=== PATIENT | male | born 1965 | race Caucasian/White ===

== ENCOUNTER 2025-08-06 18:38 | Emergency (ER) | payer OTHER, SELFPAY ==
[2025-08-06 18:41] VITALS: BP 155/90
[2025-08-06 19:02] LABS: Hematocrit 47.7 % (39.0-52.0); Hemoglobin 16.1 g/dL (13.0-18.0); Mean Corp Hgb Conc. 33.8 g/dL (33.0-37.0); Mean Corpuscular Volume 86.3 fL (80.0-94.0); Nucleated Red Blood Cells % 0 % (-); Platelet Count 268 10^3/uL (130-400); Red Cell Dist. Width 12.5 % (11.5-14.5)
[2025-08-06 19:19] LABS: ALT (SGPT) 51 U/L (0-50); AST (SGOT) 33 U/L (17-59); Albumin 4.8 g/dl (3.5-5.0); Alkaline Phosphatase 71 U/L (38-126); Blood Urea Nitrogen 19 mg/dl (9-20); Calcium 9.9 mg/dl (8.4-10.2); Carbon Dioxide 26 mmol/L (22-30); Chloride 103 mmol/L (98-107); Glucose 105 mg/dl (70-99); Potassium 4.4 mmol/L (3.5-5.1); Sodium 137 mmol/L (135-145); Total Protein 7.6 g/dl (6.3-8.2); eGFR > 60.00
[2025-08-06 19:27] LABS: Troponin I < 0.012 ng/ml
[2025-08-06 22:02] VITALS: BP 142/95
[2025-08-06 22:47] VITALS: BMI 30.9
[2025-08-06 22:50] VITALS: BP 129/93
[2025-08-06 23:00] VITALS: BP 122/86
--- NOTE | 2025-08-06 23:42 | ED.GENMED ---
History of Present Illness
General
Chief Complaint: Headache
Source: patient
Exam Limitations: none
Time Seen by Provider: 08/06/25 22:46
Nursing documentation reviewed up to this point in time: agreed with
History of Present Illness
History of Present Illness:
Patient is a 51-year-old male with history of hypertension presents to the ER for evaluation of head pressure. He reports he is at high pressure for the past 1-1/2 to 2 weeks. He reports it was off-and-on however for the past several days it has
been constant associate with nausea. He denies any visual disturbance chest pain or shortness of breath. He had varicose vein surgery July 14 at [facility]. He takes daily blood pressure medication(Olmesartan/HCTZ)/. He denies any trauma. He is
not on blood thinners. He had some neck pain but that is not new that has been for the past 2 months. He denies any visual disturbance. He had this evaluated and was diagnosed with arthritis by his family doctor.
Phy Exam
General Physical Exam
General Presentation: no apparent distress
General age: appears stated age
General Skin: warm and dry
General Habitus: normal
General Mental: alert
General Hydration: appears well hydrated
Cardiovascular Exam
Cardiovascular Exam: regular rate/rhythm, no murmur and normal peripheral pulses
Pulmonary Exam
Pulmonary Exam: lungs clear and no respiratory distress
Neurological Exam
Neurological Exam: alert, oriented x3, no motor deficits and no sensory deficits
Musculoskeletal Exam
Musculoskeletal Exam: full ROM
Skin Exam
Skin Exam: normal color and warm/dry
Psychiatric Exam
Psychiatric Exam: normal mood/affect
Course
Orders/Labs/Results
Orders:
Orders
08/06/25 18:47
Electrocardiogram (*1) Urgent
Reason for Study: Chest Pain
Cardiac Monitoring- Treatment ONCE
EKG- Treatment ONCE
IV Insert/Care/Rem.- Treatment PRN
O2 Therapy [RESP] Urgent
Titrate/Wean O2 to maintain O2 sat greater than (%): 90
Special Instructions: Maintain sats >/=90%
Pulse Ox/spot Check [RESP] Urgent
Quantity: 1
Special Instructions: ON ROOM AIR
08/06/25 18:55
Complete Blood Count/With Diff Urgent
Comprehensive Metabolic Panel Urgent
Troponin I Urgent
08/07/25 00:06
CT Head W/o Iv Contrast Urgent
Reason For Exam: headache
Abnormal Lab Results
08/06/25
18:55
Absolute Monos (auto) 0.7 H 10^3/uL
(0.1-0.6)
Monocytes % 10.5 H %
(1.7-9.3)
Glucose 105 H mg/dl
(70-99)
ALT 51 H U/L
(0-50)
08/06/25 18:55
08/06/25 18:55
Vital Signs
Initial and Last Documented VS:
Initial Vital Signs
Temp Pulse Resp BP Pulse Ox
97.5 F 69 22 155/90 97
08/06/25 18:41 08/06/25 18:41 08/06/25 18:41 08/06/25 18:41 08/06/25 18:41
Last Documented Vital Signs
Temp Pulse Resp BP Pulse Ox
97.5 F 53 18 129/93 97
08/06/25 18:41 08/06/25 22:50 08/06/25 22:50 08/06/25 22:50 08/06/25 23:44
Music Supervisor consulted with Physician
Music Supervisor consulted with physician?: Yes
Name of Physician Consulted: Vicky
MDM/Problems Addressed
Differential Diagnosis Includes:
Not limited to intracranial hemorrhage, muscular tension headache
MDM/Problems Addressed:
No acute findings on CAT scan. Patient reports headache is better now. He actually has an appoint with his family doctor on Friday. Blood pressure very minimally elevated however does not need treatment. He denies any fevers he is afebrile with
a normal white count no meningismus no recent URI illness. He denies any associated visual disturbances . He does have some chronic neck issues we discussed the possibility that this is muscular in nature as well. Discussed with patient to
alternate between Tylenol and ibuprofen and to f/u with his pcp as scheduled.
*Radiology
Radiology exam reviewed: radiology read reviewed
*Pulse Oximetry
SaO2: 97
Oxygen Mode of Delivery: Room air
Patient hypoxic: no
*Critical Care Note
Total Time (30-74mins, 75-104mins- exclusive of procedures): Not Applicable
ED Attending Note
-
Portions of this chart may have been created with voice recognition software.� Occasional wrong word or��sound alike� substitutions may have occurred due to the inherent limitations of voice recognition software.
Discharge Plan
Departure
Patient Disposition: Home (Routine Discharge)
Date of Disposition: 08/07/25
Time of Disposition: 01:54
Patient with high blood pressure during this ER visit?: Yes
Covid-19: Not Applicable
Discharge Problem:
Headache
Instructions: Headache, Adult (DC), BLOOD PRESSURE
Referrals:
Jori Ahmadi DO [Family Provider, Family Practice]
Activity Restrictions/Additional Instructions:
As discussed your CAT scan was negative for acute findings.
Your blood work was unremarkable
You may take ibuprofen /alternating with Tylenol for pain. Follow-up with your family doctor as scheduled on Friday.
return if any worsening of symptoms.
Interventions
Interventions:
*Risk Screen - Suicide Last Done: 08/06/25 18:41
*General Assessment Last Done: 08/06/25 18:41
*Neglect/Abuse Screening Last Done: 08/06/25 18:41
*ED- Fall Risk Assessment Last Done: 08/06/25 22:52
*ED COVID-19 Vaccine History Last Done: 08/06/25 23:17
*ED Influenza Vaccine History Last Done: 08/06/25 23:17
ED- Neurological Assessment Last Done: 08/06/25 23:17
Discharge Date and Time
Print Language: [place]
[2025-08-07] VITALS: BP 143/94
[2025-08-07 02:05] VITALS: BP 136/90
== END 2025-08-07 02:05 | disposition home or self-care (01) ==
LOC: EMR 18:38
PROVIDERS: Emergency Medicine; EMERGENCY PHYSICIAN Emergency Medicine; FAMILY PHYSICIAN Family Medicine
DX: R51.9 Headache, unspecified (principal); I10 Essential (primary) hypertension; Z79.899 Other long term (current) drug therapy
CPT/HCPCS: 99284; 70450; 80053; 84484; 85025; 93005